=== PATIENT | female | born 1950 | race African-American/Black ===

== ENCOUNTER 2021-05-14 09:37 | Outpatient (CLI) | payer MEDICARE ==
--- NOTE | 2021-05-14 10:56 | Mammography Report ---
DEXA BONE DENSITY SCAN INDICATION: OSTEOPOROSIS. COMPARISON: 08/15/2016. DEFINITIONS: BMD = Bone Mineral Density T-score = BMD related to mean peak bone mass of a young child (mean expressed in standard deviation) Z-score = age matched BMD is expressed in SD World Health Organization (WHO) diagnostic criteria Normal T score > -1 SD Osteopenia T score between -1 and -2.4 SD Osteoporosis T score -2.5 SD or below. LUMBAR SPINE (L1-L4): Bone mineral density (BMD) is 0.726 g/cm2. T-score is -2.9 (standard deviations of Young Adult mean). Z-score is -0.8 (standard deviations of Age Matched mean). Change (%) since most recent prior: 0.7% increased. LEFT FEMORAL NECK: Bone mineral density (BMD) is 0.457 g/cm2. T-score is -2.3 (standard deviations of Young Adult mean). Z-score is -0.8 (standard deviations of Age Matched mean). Change (%) since most recent prior: 3.4% increased. IMPRESSION: Patient's T score is diagnostic for osteoporosis and high relative risk for fracture. Signer Name: Shakeel Vega MD Signed: 05/14/2021 10:52 AM Workstation Name: [id number]
== END 2021-05-14 09:38 | disposition home or self-care (01) ==
LOC: MAMMO 09:37
PROVIDERS: ATTEND Internal Medicine Hematology & Oncology
DX: Z13.820 Encounter for screening for osteoporosis (principal); M81.8 Other osteoporosis without current pathological fracture; D69.59 Other secondary thrombocytopenia; Z78.0 Asymptomatic menopausal state
CPT/HCPCS: 77080